=== PATIENT | female | born 1960 | race American Indian/Alaskan Native ===

== ENCOUNTER → 2023-07-24 14:20 | Outpatient (REF) | payer MEDICARE, OTHER, SELFPAY | LOC: WDC 14:20 | PROVIDERS: ATTENDING PHYSICIAN Student in an Organized Health Care Education/Training Program | DX: Z12.31 Encounter for screening mammogram for malignant neoplasm of breast (principal); M81.0 Age-related osteoporosis without current pathological fracture | CPT/HCPCS: 77063; 77067; 77080 ==

== ENCOUNTER → 2023-10-02 | Outpatient (REF) | payer MEDICARE, OTHER, SELFPAY | LOC: DHSLP | PROVIDERS: ATTENDING PHYSICIAN Student in an Organized Health Care Education/Training Program | DX: G47.33 Obstructive sleep apnea (adult) (pediatric) (principal) | CPT/HCPCS: 95800 ==

== ENCOUNTER → 2024-01-19 06:15 | Outpatient (REF) | payer MEDICARE, OTHER, SELFPAY ==
[2024-01-19 11:33] VITALS: BMI 36.9
[2024-01-19 11:57] LABS: % Basophils 0.6 % (0-2); % Eosinophils 1.9 % (0-6); % Immature Granulocytes 0.2 % (0-0.5); % Lymphocytes 35.4 % (20.5-51.1); % Monocytes 6.9 % (1.7-9.3); Absolute Eosinophils 0.1 10^3/uL (0-0.7); Absolute Lymphocytes 1.7 10^3/uL (1.2-3.4); Absolute Monocytes 0.3 10^3/uL (0.1-0.6); Absolute Neutrophils 2.6 10^3/uL (1.4-6.5); Hematocrit 33.2 % (37.0-47.0); Hemoglobin 10.1 g/dL (12.0-16.0); Mean Corp Hgb Conc. 30.4 g/dL (33.0-37.0); Mean Corpuscular Hgb 23.8 pg (27.0-31.0); Mean Corpuscular Volume 78.1 fL (81.0-99.0); Mean Platelet Volume 9.8 fL (7.4-10.4); Nucleated Red Blood Cells % 0 %; Platelet Count 205 10^3/uL (130-400); Red Blood Cell Count 4.25 10^6/uL (4.20-5.40); Red Cell Dist. Width 15.5 % (11.5-14.5); White Blood Cell Count 4.8 10^3/uL (4.8-10.8)
[2024-01-19 12:32] LABS: ALT (SGPT) 18 U/L (0-35); AST (SGOT) 24 U/L (14-36); Alkaline Phosphatase 66 U/L (38-126); Blood Urea Nitrogen 15 mg/dl (7-17); Calcium 9.2 mg/dl (8.4-10.2); Carbon Dioxide 25 mmol/L (22-30); Chloride 107 mmol/L (98-107); Estimated Creatinine Clearance 85 ml/min; Glucose 168 mg/dl (70-99); Potassium 4.6 mmol/L (3.5-5.1); Sodium 141 mmol/L (135-145); Total Bilirubin 0.8 mg/dl (0.2-1.3); Total Protein 6.8 g/dl (6.3-8.2); eGFR > 60.00
[2024-02-10 06:20] VITALS: BP 127/87
[2024-02-10 06:36] VITALS: BP 127/87
[2024-02-10 06:51] VITALS: BP 110/74
[2024-02-10 06:59] LABS: Glucose - Point of Care 133 mg/dl (70-99)
[2024-02-10 07:06] VITALS: BP 129/77
[2024-02-10] MEDS: LOPRESSOR 25 MG PO (07:44)
[2024-02-10] MEDS: NORVASC 10 MG PO (07:45)
--- NOTE | 2024-02-10 07:47 | PTCARENOTE ---
Procedure was cancelled after pt's wrist was examined by Dr Barlow. Pt appers to have a fractured right wrist. She's being taken to ED at this time for eval. Lisinopril, Metoprlol a,d Norvasc were administered before transfer for heart rate 120's.
Son notified of plan of care. All personal effects with pt.
--- NOTE | 2024-02-10 07:47 | W.PN.UPDATE ---
Update Note
Progress Note Update
Pt here for PFA today. She had a fall last night and landed on her right arm/wrist, decided not to go to ER/UC as she had procedure today. On exam, the right wrist/forearm is warm to touch, swollen and tender, bruising noted on back of hand and
posterior lateral wrist with disfiguration/marked swelling. Unable to move at wrist without significant pain. Fingers are mildly swollen and warm, denies numbness/tingling.
Discussed with Dr. Barlow. Will cancel procedure today and send patient to ER for workup. Likely a fractured wrist. CBC office will reschedule procedure.
[2024-02-10] MEDS: ZESTRIL 40 MG PO (09:45)
== END ==
LOC: REG 06:15
PROVIDERS: ATTENDING PHYSICIAN Internal Medicine Cardiovascular Disease; FAMILY PHYSICIAN Student in an Organized Health Care Education/Training Program
DX: I48.0 Paroxysmal atrial fibrillation (principal); Z53.09 Procedure and treatment not carried out because of other contraindication; I10 Essential (primary) hypertension; E03.9 Hypothyroidism, unspecified; E11.9 Type 2 diabetes mellitus without complications; Z79.01 Long term (current) use of anticoagulants; Z79.84 Long term (current) use of oral hypoglycemic drugs
CPT/HCPCS: 36415; 80053; 82962; 85025; 86850; 86900; 86901

== ENCOUNTER 2024-02-10 07:54 | Emergency (ER) | payer MEDICARE, OTHER, SELFPAY ==
[2024-02-10] VITALS (11 sets, daily range): BP systolic 90–131; BP diastolic 66–94; BMI 37.2
--- NOTE | 2024-02-10 08:24 | ED.GENMED ---
History of Present Illness
<Li Fernández MD, Resident - Last Filed: 02/10/24 09:53>
General
Chief Complaint: Musculo-Skeletal Complaint
Source: patient
Exam Limitations: none
Time Seen by Provider: 02/10/24 07:58
Nursing documentation reviewed up to this point in time: agreed with
Travel History
Have you traveled to any high risk areas for coronavirus over the past 14 days?: No
Have you had any contact with someone who has COVID-19?: No
Do you have any symptoms of coronavirus? Fever > 100 degrees, chills, cough, shortness of breath, sore throat, loss of taste or smell, muscle aches, or headache?: No
History of Present Illness
History of Present Illness:
64-year-old female with past medical history of hypertension, osteoporosis, A-fib/a flutter on anticoagulation, HLD presents to the hospital s/p mechanical fall yesterday night around 10 PM. While trying to go down on the staircase in her home she
missed a step and tripped down, fell on an outstretched hand and boar all her weight on right hand and right knee. Then she pulled herself back on the stairs and sat down. She denies hitting her head. She denies having blurring of vision,
headaches, nausea, chest pain, ribs pain, neck pain, hips pain. She had no difficulty bearing weight on her hips or knees, denies having any pain in her knee or hips. She is scheduled to undergo pulmonary vein ablation for A-fib/flutter today in
the a.m. with Dr. Barlow, hence patient decided to go ahead with the procedure and seek health care for her wrist later. Upon arrival to the ER patient continues to remain in A-fib, took her metoprolol succinate in the a.m. today and her last dose
of Eliquis was in the p.m. yesterday.
Past History
<Li Fernández MD, Resident - Last Filed: 02/10/24 09:53>
Past History
ED Past Medical History: Other (Hypertension, A-fib/a flutter, osteoporosis, diabetes, anticoagulation for A-fib.)
ED Past Surgical History: Other (Femur and left arm orthopedic surgeries.)
Social History
Tobacco: Non-smoker
Alcohol: None
Drug: None
Personal:
Living: with family
Employment: Retired
Family History
Family History: Other
Review of Systems
<Li Fernández MD, Resident - Last Filed: 02/10/24 09:53>
Review of Systems
Allergies reviewed?: Yes
Other source history: family
Constitutional: Reports no symptoms
EENT: Reports no symptoms
Respiratory: Reports no symptoms
Cardiac: Reports no symptoms
ABD/GI: Reports no symptoms
: Reports no symptoms
Musculoskeletal: Reports joint pain (Right wrist pain, right wrist swelling, right weight. Still able to wiggle the fingers.)
Skin: Reports other (Bruising and contusion over the right wrist.)
Neurological: Reports no symptoms
Endocrine: Reports no symptoms
Hematologic/Lymphatic: Reports no symptoms
Psychiatric: Reports no symptoms
Phy Exam
<Li Fernández MD, Resident - Last Filed: 02/10/24 09:53>
General Physical Exam
General Presentation: well appearing and no apparent distress
General Skin: warm
General Habitus: normal
General Mental: alert
General Hydration: appears well hydrated
ENT Exam
ENT Exam: EOMI
Eye Exam
Eye Exam: PERRL, EOMI and disc sharp
Cardiovascular Exam
Cardiovascular Exam: no edema, no gallop, no JVD, no murmur, normal peripheral pulses and irregularly irregular
Heart Sounds: normal
Pulmonary Exam
Pulmonary Exam: other (Bilateral lower lobe crackles present)
Gastrointestinal Exam
Gastrointestinal Exam: normal bowel sounds, non tender, soft and non distended
Neurological Exam
Neurological Exam: alert and oriented x3
Musculoskeletal Exam
Musculoskeletal Exam: other (Right wrist-erythematous, swollen, tender to touch, contusion on the surface of the skin noted mild displacement of the radial styloid noted)
Skin Exam
Skin Exam: erythema and other (Contusion over the right wrist noted.)
Course
<Li Fernández MD, Resident - Last Filed: 02/10/24 09:53>
Orders/Labs/Results
Orders:
Orders
02/10/24 08:02
CR Wrist - Right Min 3 Views Urgent
Comment:
Reason For Exam: fall
Knee, Right 4 or More Views [CR Knee- Right 4 Or More View*] Urgent
Comment:
Reason For Exam: fall
02/10/24 08:03
EKG [Electrocardiogram (*1)] Urgent
Reason for Study: Atrial Fibrillation
EKG- Treatment ONCE
02/10/24 08:47
Splints/Slings/Crut- Treatment ONCE
Crutches: No
Location: Right
Type of Splint: Volar
02/10/24 09:20
Complete Blood Count/With Diff Urgent
Comprehensive Metabolic Panel Urgent
02/10/24 09:27
Propofol [Diprivan] 20 ml .ROUTE .STK-MED
02/10/24 09:38
EKG [Electrocardiogram (*1)] Urgent
Reason for Study: Atrial Fibrillation
EKG- Treatment ONCE
Vital Signs
Initial and Last Documented VS:
Initial Vital Signs
Temp Pulse Resp Pulse Ox
98.0 F 109 17 97
02/10/24 07:57 02/10/24 07:57 02/10/24 07:57 02/10/24 07:57
Last Documented Vital Signs
Temp Pulse Resp BP Pulse Ox
97.8 F 61 21 106/66 98
02/10/24 09:30 02/10/24 09:45 02/10/24 09:45 02/10/24 09:45 02/10/24 09:45
<Edenilson Hardy Marilyn, DO - Last Filed: 02/10/24 09:49>
Orders/Labs/Results
Orders:
Orders
02/10/24 08:02
CR Wrist - Right Min 3 Views Urgent
Comment:
Reason For Exam: fall
Knee, Right 4 or More Views [CR Knee- Right 4 Or More View*] Urgent
Comment:
Reason For Exam: fall
02/10/24 08:03
EKG [Electrocardiogram (*1)] Urgent
Reason for Study: Atrial Fibrillation
EKG- Treatment ONCE
02/10/24 08:47
Splints/Slings/Crut- Treatment ONCE
Crutches: No
Location: Right
Type of Splint: Volar
02/10/24 09:20
Complete Blood Count/With Diff Urgent
Comprehensive Metabolic Panel Urgent
02/10/24 09:27
Propofol [Diprivan] 20 ml .ROUTE .STK-MED
02/10/24 09:38
EKG [Electrocardiogram (*1)] Urgent
Reason for Study: Atrial Fibrillation
EKG- Treatment ONCE
Vital Signs
Initial and Last Documented VS:
Initial Vital Signs
Temp Pulse Resp Pulse Ox
98.0 F 109 17 97
02/10/24 07:57 02/10/24 07:57 02/10/24 07:57 02/10/24 07:57
Last Documented Vital Signs
Temp Pulse Resp BP Pulse Ox
97.8 F 61 21 106/66 98
02/10/24 09:30 02/10/24 09:45 02/10/24 09:45 02/10/24 09:45 02/10/24 09:45
Procedures
<Li Fernández MD, Resident - Last Filed: 02/10/24 09:53>
Cardioversion
Patient has a gag reflex: Yes
<Edenilson Sanders, DO - Last Filed: 02/10/24 09:49>
Cardioversion
Indication:: Afib
Performed by:: Dr. Sanders / Dr. Fernández
Synchronized?: Yes
Energy Used: 200 joules
Number of attempts: 1
Successful?: Yes
ASA Risk Score: Class II
Any reaction or bad outcome to prior sedation/anesthesia?: No history of a reaction
Sedation level to be attained: moderate
Chart and allergies reviewed: Yes
Patient reassessed prior to sedation: Yes
Time out completed at (validating right patient & procedure): 09:34
History of difficult intubation: No
Airway free of obstruction: Yes
Patient is able to open mouth: Yes
Patient has no dentures: Yes
Patient has no loose teeth: Yes
Medication administered by Provider during Moderate Sedation: IV Propofol (mg)
Total dose administered: 80
Time drug administered: 09:34
Start Time: 09:34
Stop Time: 09:45
<Li Fernández MD, Resident - Last Filed: 02/10/24 09:53>
MDM/Problems Addressed
Differential Diagnosis Includes:
Fracture of the distal radius head. Nondisplaced fracture of the ulnar styloid-Colles' fracture
MDM/Problems Addressed:
Colles' fracture right wrist with volar splint.
<Li Fernández MD, Resident - Last Filed: 02/10/24 09:53>
*Radiology
Radiology exam reviewed: preliminary read by ED provider
*Pulse Oximetry
Patient hypoxic: no
*EKG
Interpreted by ED Provider?: Yes
EKG Intrepretation Date: 02/10/24
Interpretation: abnormal
Comparison EKG: changes noted
Heart Rate: 106
Rate: other
Rhythm: a-fib
[place]: normal axis
Interval: normal QT interval and normal OR interval
QRS Pattern: normal QRS
Ischemia: no ischemia
*Rice Drier Operator Interpretation
Rate: other
Interpretation: abnormal
Heart Rate: 110
Rhythm: a-fib
*Critical Care Note
Total Time (30-74mins, 75-104mins- exclusive of procedures): Not Applicable
<Li Fernández MD, Resident - Last Filed: 02/10/24 09:53>
Update Note
Update Note:
Radiology report revealed comminuted fracture of the distal right radius extending into the radiocarpal joint with several small fracture fragments, and accompanying nondisplaced fracture of the ulnar styloid-Colles' fracture.
Updated patient, explained the treatment plan-volar splint and follow-up with outpatient orthopedics in 2 days.
Patient continues to remain on A-fib.
Touch base with cardiology, and plan is to perform synchronized cardioversion for A-fib management.
Patient did not miss any Eliquis doses over the last several weeks. Last Eliquis dose was yesterday night.
CBC and CMP ordered before performing cardioversion.
ED Attending Note
<Li Fernández MD, Resident - Last Filed: 02/10/24 09:53>
-
Portions of this chart may have been created with voice recognition software.� Occasional wrong word or��sound alike� substitutions may have occurred due to the inherent limitations of voice recognition software.
<Edenilson Sanders DO - Last Filed: 02/10/24 09:49>
ED Attending Note
Patient seen and examined by attending physician: Yes
I performed the substantive portion of visit, reviewed & personally made and approve the management plan that is documented in note by myself or KARMA.: Yes
I performed a history and physical exam of patient and discussed management with resident, I reviewed resident's note and agree with documented findings and plan of care.: Yes
ED Attending Note:
I evaluated patient at bedside. Soft tissue swelling noted with decreased active range of motion of the right wrist. Considered attempting reduction however I do not feel that this will change alignment significantly. Dr. Barlow notified and
will plan ablation attempt next week. Heart rate is elevated and she did take her metoprolol earlier today.
Discharge Plan
Departure
Patient Disposition: Home (Routine Discharge)
Date of Disposition: 02/10/24
Time of Disposition: 10:20
Patient with high blood pressure during this ER visit?: Yes
Condition: Fair
Discharge Problem:
Colles' fracture of right radius, Atrial fibrillation status post cardioversion
Instructions: Wrist Fracture (DC), Splint Care
Prescriptions:
No Action
metformin 500 MG tablet
1,000 mg PO BID
atorvastatin 20 MG tablet
20 mg PO DAILY
glimepiride 1 MG tablet
1 mg PO DAILY
levothyroxine [Synthroid] 88 MCG tablet
88 mcg PO DAILY
amlodipine 10 MG tablet
10 mg PO DAILY
metoprolol tartrate 50 MG tablet
25 mg PO BID
lisinopril 40 MG tablet
40 mg PO DAILY
Eliquis 5 MG tablet
5 mg PO BID
multivitamin 1 EACH tablet
1 ea PO DAILY
Prolia 60 mg/mL Syringe
60 mg SC [id number]
Referrals:
Kellee Irby MD [Family Provider] -
Inderjit Flores MD [Active] - (In 2 days for Colle's fracture evaluation)
Keely Barlow MD [Active] - (On February 17.)
Activity Restrictions/Additional Instructions:
Take Tylenol Extra Strength as needed for pain. Can go up to a maximum of 3 g a day.
Follow-up with orthopedics Dr. Flores in 2 days.
Follow-up with your wooden frame builder Dr. Barlow on February 17.
Follow-up with your primary care in 2 weeks.
Interventions
Interventions:
*Risk Screen - Suicide Last Done: 02/10/24 07:57
*General Assessment Last Done: 02/10/24 07:57
*Neglect/Abuse Screening Last Done: 02/10/24 07:57
*ED COVID-19 Vaccine History Last Done: 02/10/24 07:57
ED-Musculoskeletal Assessment Last Done: 02/10/24 07:57
Discharge Date and Time
Print Language: WOLOF
[2024-02-10] MEDS: ELIQUIS 5 MG PO (10:25)
== END 2024-02-10 11:07 | disposition home or self-care (01) ==
LOC: EMR 07:54
PROVIDERS: EMERGENCY PHYSICIAN Emergency Medicine; FAMILY PHYSICIAN Student in an Organized Health Care Education/Training Program
DX: S52.531A Colles' fracture of right radius, initial encounter for closed fracture (principal); I48.91 Unspecified atrial fibrillation; W19.XXXA Unspecified fall, initial encounter; I10 Essential (primary) hypertension; M81.0 Age-related osteoporosis without current pathological fracture; E11.9 Type 2 diabetes mellitus without complications; E78.00 Pure hypercholesterolemia, unspecified
CPT/HCPCS: 99283; 29125; 92960; 73110; 73564; 93005

== ENCOUNTER 2024-02-18 06:48 | Day surgery (SDC) | payer MEDICARE, OTHER, SELFPAY ==
--- NOTE | 2024-02-12 13:40 | PTCARENOTE ---
Abnormal EKG reviewed by Dr. Gamble, no further action requested.
[2024-02-18] VITALS (18 sets, daily range): BP systolic 77–130; BP diastolic 38–90; BMI 36.7; BMI 33.8
[2024-02-18 13:15] LABS: Glucose - Point of Care 120 mg/dl (70-99)
[2024-02-18] MEDS: TYLENOL 1000 MG PO (13:18)
--- NOTE | 2024-02-18 20:06 | W.IMMPOSTOP ---
Surgical Immed Post Op Note
-
Primary Surgeon: Calvin Madera MD
Assisting Surgeon: Ann Rader PA-C
Pre-op Diagnosis: Right distal radius fracture
Post-op Diagnosis: Right distal radius fracture
Procedure Performed: Open reduction internal fixation right distal radius
Anesthesia Type: block, general
Specimen / Cultures: none
Estimated Blood Loss: 5mL
Complications: none apparent
Tourniquet time: 75 minutes
Operative Findings: dorsal comminution
Operative report dictation #: [id number]
[2024-02-18 20:09] LABS: Glucose - Point of Care 107 mg/dl (70-99)
[2024-02-18] MEDS: LR 1000 IV (22:34)
--- NOTE | 2024-02-18 22:34 | HPS.HSE ---
Family Physician
-
Family Physician: Kellee Irby MD
Chief Complaint
-
Tachycardia / Hypotension
History of Present Illness
Patient is a 64y F with PMH significant for hypertension, DM-II and A-Fib who presented to today for scheduled R distal radius ORIF. Patient had fall at home on outstretched hand on 02/08. Noted to have fracture and scheduled for surgery today.
Patient underwent surgery this afternoon. while in PACU / recoievry, she was noted to be in atrial fibrillation with rates > 100 bpm and was hypotensive with BP as low as 77/54.
Patient seen and examined in the PACU.
She feels well and denies any lightheadedness, dizziness, chest pain, palpitations, or dyspnea. No fevers / chills, N/V/D or recent complaints.
Patient states that she has a history of paroxysmal atrial fibrillation. She is followed by Dr. Barlow. She was scheduled for PVI ablation; however, she had to postpone this due to her fall / wrist fracture.
Medical History
Past Medical History
Past Medical History: Reports Other
Additional Past Medical History:
Paroxysmal Atrial Fibrillation
Hypertension
DM-II
Hypothyroidism
Osteoporosis
Obesity
Past Surgical History: Reports Other
Additional Past Surgical History:
Right Femur ORIF
Left Arm Surgery
DCCV
PVI Ablation
Social History
Tobacco: Non-smoker
Alcohol: None
Drug: None
Family History
Family History: Not pertinent
Allergies / Home Medications
Allergies reflects when Allergies were last updated in [facility].
Home Medications with original date entered in [facility]
Allergy/Medication List:
Allergies
Allergy/AdvReac Type Severity Reaction Status Date / Time
No Known Allergies Allergy Verified 02/18/24 13:02
Home Medications
amlodipine 10 mg tablet 10 mg PO DAILY 06/21/21
apixaban 5 mg tablet (Eliquis) 5 mg PO BID 06/21/21
atorvastatin 20 mg tablet 20 mg PO DAILY 06/21/21
glimepiride 1 mg tablet 1 mg PO DAILY 06/21/21
levothyroxine 88 mcg tablet (Synthroid) 88 mcg PO DAILY 06/21/21
lisinopril 40 mg tablet 40 mg PO DAILY 06/21/21
metformin 500 mg tablet 1,000 mg PO BID 06/21/21
metoprolol tartrate 50 mg tablet 25 mg PO BID 06/21/21
multivitamin 1 ea PO DAILY 10/08/21
denosumab 60 mg/mL subcutaneous syringe (Prolia) 60 mg SC [id number] 02/10/24
furosemide 40 mg tablet (Lasix) 40 mg PO DAILY PRN edema 02/17/24
Review of Systems
-
History Source: Patient
A 12 point ROS was completed and negative except as noted: Yes
Constitutional: Denies Fever, Fatigue or Chills
EENT: Denies Sore Throat
Respiratory: Denies Cough or Trouble Breathing
Cardiac: Denies Chest Pain or Palpitations
Abdomen/GI: Denies Abdominal Pain, Nausea, Vomiting or Diarrhea
: Denies Dysuria, Frequency or Flank Pain
Musculoskeletal: Reports Joint Pain; Denies Edema
Neurological: Denies Dizzy or Headache
Psych: Denies Depression or Anxiety
Physical Exam
Vital Signs
Vital Signs
Temp Pulse Resp BP Pulse Ox
97.5 F 110 16 108/77 90
02/18/24 22:28 02/18/24 22:28 02/18/24 22:28 02/18/24 22:28 02/18/24 22:28
Physical Exam
General: Other (64y F in no acute distress.)
HEENT: Moist mucous membranes and PERRLA
Respiratory: Clear; No Wheezes, Rales or Rhonchi
Cardiac: S1/S2 and Irregular Rhythm; No Murmur
GI: Soft, Non Tender, Non Distended and Normal Bowel Sounds
Musculoskeletal: No Clubbing, No Cyanosis, No Edema and Other (RUE with splint / LISA wrap in place post-op. No LE edema.)
Neuro: AO x 3
Impression/Plan
-
A/P: Patient is a 64y F with PMH significant for hypertension, DM-II and A-Fib who presented to for scheduled R wrist ORIF today and was noted to be tachycardic and hypotensive post-op.
Paroxysmal Atrial Fibrillation
Hypotension post-op
- Monitor on telemetry overnight.
- A-Fib rates are around 100 bpm for the most part.
- Will continue with usual metoprolol dosing for now and follow rates, etc.
- Asymptomatic. Follow for any clinical changes.
- IVF support for low BP - has been steadily in 90s - 100s for some time now after IVFs.
- Follow for any new symptoms / worsening BP / etc.
- Patient states that she held her Eliquis for 3 days prior to surgery. Resume tomorrow if OK with Ortho.
s/p R Distal Radius ORIF 02/18/24
- Pain well-controlled at present.
- Post-op care per Ortho.
Benign Hypertension
- Hold antihypertensive medications for now given hypotension.
- Resume one at a time once BP is improved.
DM-II
- Stable. Hold PO medications.
- Follow glucose and cover with SSI as needed.
- Update A1C.
Hypothyroidism
- Stable. Continue T4 supplementation.
DVT Prophylaxis: SCDs
Code Status: Full
--- NOTE | 2024-02-18 22:49 | PTCARENOTE ---
Addendum entered by Vickie Khan RN 02/18/24 22:52:
pt's SaO2 90% on room air, placed on 2L nasal cannula, pt SaO2 94%
Original Note:
received pt from PACU at approx 2220, pt pulled over from stretcher to bed with assist x2.
received pt with R arm in rebecca wrap and in sling, limb alert bracelet placed.
VSS, AAOx3, admission questions completed as documented.
pt oriented to room, call [facility] within reach
--- NOTE | 2024-02-18 23:19 | PTCARENOTE ---
Pt placed on telemetry monitoring - reading A-fib, HR in the 100s-110s.
BOBBI Obando notified regarding 1mg IV Lopressor dose from approx 1944, instructed not to give and monitor BP/HR.
Pt updated on plan of care
[2024-02-19] VITALS (7 sets, daily range): BP systolic 102–133; BP diastolic 64–87; PULSE 94; O2SAT 97
[2024-02-19] MEDS: DESENEX/MITRAZOL/ZEASORB TOPICAL (00:39)
[2024-02-19 06:10] LABS: Hematocrit 28.5 % (37.0-47.0); Mean Corp Hgb Conc. 31.6 g/dL (33.0-37.0); Mean Corpuscular Hgb 24.1 pg (27.0-31.0); Mean Corpuscular Volume 76.2 fL (81.0-99.0); Mean Platelet Volume 10.1 fL (7.4-10.4); Platelet Count 172 10^3/uL (130-400); Red Blood Cell Count 3.74 10^6/uL (4.20-5.40); White Blood Cell Count 5.4 10^3/uL (4.8-10.8)
[2024-02-19 06:27] LABS: Blood Urea Nitrogen 10 mg/dl (7-17); Calcium 7.3 mg/dl (8.4-10.2); Carbon Dioxide 22 mmol/L (22-30); Chloride 107 mmol/L (98-107); Estimated Creatinine Clearance 105 ml/min; Glucose 177 mg/dl (70-99); Potassium 4.4 mmol/L (3.5-5.1); Sodium 139 mmol/L (135-145); eGFR > 60.00
[2024-02-19 07:45] LABS: Glucose - Point of Care 185 mg/dl (70-99)
--- NOTE | 2024-02-19 07:55 | W.PN.ORTHO ---
Documented by User: Lev Cortez PA-C 02/19/24 08:03
Today's Communication / Plan
-
Status post open reduction internal fixation right distal radius fracture March 19, [address] Madera. She is doing well and pain is controlled. She was admitted for observation secondary to hypotension which seems to be improved. Suggest if
medically cleared today discharge to home. She may resume her Eliquis as of now. Focus on ice with elevation to control swelling and pain along with Tylenol. Follow-up in office 2 weeks for wound check and x-ray.
Assessment
.
Distal Motor Intact: Yes
Dressing:
Clean, dry and intact.
Plan
.
Surgery / Date: ORIF R radius fx 02/17 Sant[facility]
DVT Prophylaxis: Other
Activity:
Out of bed.
PT/OT
Discharge Plan: Home
Subjective
.
.:
Patient underwent open reduction internal fixation right distal radius fracture February 18, [address] Madera. She does have history of atrial fibrillation/ hypotension and was admitted for observation. This morning pain seems to be
well-controlled
Vital Signs and Labs
.
Vital Signs and Labs:
Lab Results
02/19/24 05:43
02/19/24 05:43
Temp Pulse Resp BP Pulse Ox
97.7 F 111 16 124/73 100
02/19/24 07:26 02/19/24 07:26 02/19/24 07:26 02/19/24 07:26 02/19/24 07:26
Physical Exam
-
Splint in place right upper extremity. Mild to moderate edema noted in the fingers. No pain noted. Distal neurovascular was intact.

Documented by User: Calvin Madera MD 02/19/24 08:10
Today's Communication / Plan
-
Status post open reduction internal fixation right distal radius fracture February 18, [address] Madera. She is doing well and pain is controlled. She was admitted for observation secondary to hypotension which seems to be improved. Suggest if
medically cleared today discharge to home. She may resume her Eliquis as of now. Focus on ice with elevation to control swelling and pain along with Tylenol. Follow-up in office 2 weeks for wound check and x-ray.
[2024-02-19] MEDS: SYNTHROID 88 MCG PO (08:42)
[2024-02-19] MEDS: LOPRESSOR 25 MG PO (08:42)
[2024-02-19] MEDS: LR 1000 IV (08:43)
[2024-02-19] MEDS: DESENEX/MITRAZOL/ZEASORB 1 APPLIC TOPICAL (08:44)
[2024-02-19] MEDS: NOVOLOG FLEXPEN-LOW RESISTANCE 1 UNITS SC (08:55)
--- NOTE | 2024-02-19 10:10 | W.PN.HOSP.TC ---
Today's Communication/Plan
-
dc to home/VN
Assessment / Plan
Assessment / Plan
Assessment:
Paroxysmal Atrial Fibrillation
Hypotension post-op
- Monitor on telemetry overnight.
- A-Fib rates are around 100 bpm for the most part.
- discharge on Metoprolol BID; d/w daughter/patient for a PRN dose if HR >100 sustained >1 hr at home
- s/p IVF
- Resume Eliquis at discharge per Ortho
- planned for outpatient Ablation with Dr. Barlow
s/p R Distal Radius ORIF 02/18/24
- Pain well-controlled at present.
- Post-op care per Ortho.
Benign Hypertension
- resume home BP meds at discharge
DM-II
- Stable. resume home meds
- Follow glucose and cover with SSI as needed.
- A1c pending
Hypothyroidism
- Stable. Continue T4 supplementation.
DVT Prophylaxis: SCDs
Code Status: Full
More than 30 minutes spent in discharge including
Final examination of the patient
Summarizing hospital stay
Instructions for continuing care to all relevant caregivers
Preparation of discharge records, prescriptions, and referral forms
Total time spent (in minutes): 41
Anticipated Discharge: Today
Subjective/Interval History
-
Date of Service: February 19, 2024
denies any new complaints presently
BP in 120s
HRs mostly controlled 100-120s
Objective Data
-
Labs:
Laboratory Results
02/19/24
05:43
WBC 5.4
Hgb 9.0 L
Hct 28.5 L
Plt Count 172
Sodium 139
Potassium 4.4
Chloride 107
Carbon Dioxide 22
BUN 10
Creatinine 0.5 L
Glucose 177 H
Calcium 7.3 L
Vital Signs:
Vital Signs
Temp Pulse Resp BP Pulse Ox
97.7 F 111 16 124/73 100
02/19/24 07:26 02/19/24 08:42 02/19/24 07:26 02/19/24 08:42 02/19/24 07:26
I&O
02/18/24 02/19/24 02/20/24
06:59 06:59 06:59
Intake Total 3800 / 3800
Output Total 400 / 400
Balance 3400 / 3400
Physical Exam
-
General: No Apparent Distress
HEENT: Normocephalic and Atraumatic
Respiratory: Negative Wheezes
Cardiac: Irregular Rhythm and Tachycardic (mild)
Genito-urinary: No Costovertebral Tender
Neuro: AO x 3
Hematologic / Lymphatic: No Lymphadenopathy
Psych: Calm
Data Reviewed
-
Total Time Spent with Patient (in minutes): 41
Labs: Labs Reviewed by me
[2024-02-19 10:19] LABS: Glycohemoglobin (HgbA1c) 6.8 % (4.0-5.6)
--- NOTE | 2024-02-19 10:21 | W.DS.TRANS ---
DC Summary - Academic Services Professional
-
Discharge Instructions:
Discharge Diagnosis/Procedures Open reduction internal fixation right distal
radius fracture, post-op hypotension
Diet As tolerated
Additional Activity non-weightbearing right upper extremity
Driving Restrictions No driving
Bathing Restrictions when showering bag splint
Wound Care leave splint in place
ice with elevation to above level of heart to
control swelling/pain
Instructions:
Stand-Alone Forms:
Changes to Home Medications: Yes
Discharge Medications:
DC Medications w/original date entered in [facility]
apixaban 5 mg tablet (Eliquis) 5 mg PO BID 06/21/21
atorvastatin 20 mg tablet 20 mg PO DAILY 06/21/21
glimepiride 1 mg tablet 1 mg PO DAILY 06/21/21
levothyroxine 88 mcg tablet (Synthroid) 88 mcg PO DAILY 06/21/21
metformin 500 mg tablet 1,000 mg PO BID 06/21/21
metoprolol tartrate 50 mg tablet 25 mg PO BID 06/21/21
multivitamin 1 ea PO DAILY 10/08/21
denosumab 60 mg/mL subcutaneous syringe (Prolia) 60 mg SC [id number] 02/10/24
furosemide 40 mg tablet (Lasix) 40 mg PO DAILY PRN edema 02/17/24
acetaminophen 500 mg capsule 1,000 mg (2 x 500 mg) PO Q6H PRN Pain #60 caps 02/19/24
lisinopril 20 mg tablet 20 mg PO DAILY #30 tabs 02/19/24
Home Medication Changes
amlodipine stopped
reduced Lisinopril to 20mg from 40mg
resume Eliquis
Pending Results: No
Total time spent discharging patient (in min): 41
--- NOTE | 2024-02-19 11:00 | PTOTSP ---
The patient was able to ambulate and perform stairs, offering no concerns regarding mobility upon return home (patient was managing without use of her right hand since the injury prior to surgery). Patient anticipates having family assistance as
needed. No PT needs identified at this time, will sign off.
--- NOTE | 2024-02-19 11:28 | CM ---
Alert awake oriented patient who lives with her dgt Etal who lives in a [address] with 2 steps to enter and 10 steps to bed/bathroom.She is independent in driving and in all activities of daily living.Offered VN she declined.Dgt will drive her
home.
No adaptive devices
Never had VN/SNF
Pharmacy [facility]
PCP Dr Owusu
PLAN Home no needs
== END 2024-02-19 13:47 | disposition home or self-care (01) ==
LOC: SDS 06:48
PROVIDERS: Hospitalist; ATTENDING PHYSICIAN Internal Medicine; CONSULT PHYSICIAN Student in an Organized Health Care Education/Training Program; FAMILY PHYSICIAN Student in an Organized Health Care Education/Training Program
DX: S52.501A Unspecified fracture of the lower end of right radius, initial encounter for closed fracture (principal); W18.30XA Fall on same level, unspecified, initial encounter; Y92.009 Unspecified place in unspecified non-institutional (private) residence as the place of occurrence of the external cause
CPT/HCPCS: 25607; 73100; 76000; 80048; 82962; 83036; 85027; 97161; 97166; C1713

== ENCOUNTER 2024-03-16 10:46 | Day surgery (SDC) | payer MEDICARE, OTHER, SELFPAY ==
[2024-03-05 11:33] VITALS: BMI 38.1
[2024-03-05 11:55] LABS: % Basophils 0.6 % (0-2); % Eosinophils 1.1 % (0-6); % Immature Granulocytes 0.2 % (0-0.5); % Lymphocytes 30.1 % (20.5-51.1); % Monocytes 5.5 % (1.7-9.3); % Neutrophils 62.5 % (42.2-75.2); Absolute Eosinophils 0.1 10^3/uL (0-0.7); Absolute Lymphocytes 1.6 10^3/uL (1.2-3.4); Absolute Monocytes 0.3 10^3/uL (0.1-0.6); Absolute Neutrophils 3.4 10^3/uL (1.4-6.5); Hematocrit 33.4 % (37.0-47.0); Hemoglobin 9.8 g/dL (12.0-16.0); Mean Corp Hgb Conc. 29.3 g/dL (33.0-37.0); Mean Corpuscular Hgb 24.1 pg (27.0-31.0); Mean Corpuscular Volume 82.1 fL (81.0-99.0); Mean Platelet Volume 10.2 fL (7.4-10.4); Nucleated Red Blood Cells % 0 %; Platelet Count 219 10^3/uL (130-400); Red Blood Cell Count 4.07 10^6/uL (4.20-5.40); Red Cell Dist. Width 16.6 % (11.5-14.5); White Blood Cell Count 5.4 10^3/uL (4.8-10.8)
[2024-03-05 12:56] LABS: ALT (SGPT) 16 U/L (0-35); AST (SGOT) 20 U/L (14-36); Albumin 3.7 g/dl (3.5-5.0); Alkaline Phosphatase 86 U/L (38-126); Blood Urea Nitrogen 15 mg/dl (7-17); Calcium 8.5 mg/dl (8.4-10.2); Carbon Dioxide 26 mmol/L (22-30); Chloride 103 mmol/L (98-107); Estimated Creatinine Clearance 82 ml/min; Glucose 164 mg/dl (70-99); Iron 36 ug/dl (37-170); Potassium 4.2 mmol/L (3.5-5.1); Sodium 141 mmol/L (135-145); Total Bilirubin 0.8 mg/dl (0.2-1.3); Total Protein 6.5 g/dl (6.3-8.2); eGFR > 60.00
[2024-03-05 13:05] LABS: Percent Saturation 8 % (20-50); Total Iron Binding Capacity 407 ug/dl (265-497)
[2024-03-05 15:58] LABS: Ferritin 7.9 ng/ml (11.1-264.0)
--- NOTE | 2024-03-08 13:58 | W.PN.UPDATE ---
Update Note
Progress Note Update
Anemia.� Additional labs added indicating an iron deficiency�
anemia.� This was present prior to fracture and ORIF.� IV iron infusion�
set up for patient and advised her GI eval.� PCP aware.
�
[2024-03-16] VITALS (23 sets, daily range): BP systolic 77–158; BP diastolic 33–92; BMI 38.1
[2024-03-16 11:47] LABS: Glucose - Point of Care 127 mg/dl (70-99)
[2024-03-16 14:59] LABS: ACT-LR - POC 390 Seconds (116-155)
[2024-03-16 15:38] LABS: ACT-LR - POC 356 Seconds (116-155)
[2024-03-16 15:54] LABS: ACT-LR - POC > 397 Seconds (116-155)
--- NOTE | 2024-03-16 16:07 | ITS.CL.ABL ---
Epic Trainer - Ablation
Ablation
Procedure Report:
AFIB ablation:
Ms. Lambert is a very pleasant 64 yr old woman with symptomatic persistent AF s/p AF ablation 10/19/2021 with PVI (Radiofrequency) had recurrent atrial fibrillation and failed Tikosyn due to long QT is recommended a redo AF ablation.
Date of the Procedure:
03/16/2024
Indications:
Persistent with recurrent atrial fibrillation
Pre-Operative Diagnosis:
Persistent with recurrent atrial fibrillation
Post-Operative Diagnosis:
Persistent with recurrent atrial fibrillation
Procedure Performed:
Atrial fibrillation ablation with Pulsed-Field approach for pulmonary vein isolation
Posterior wall isolation
Performing Physician:
Keely Barlow MD
Assistants:
EP staff
Anesthesia:
See anesthesia records
Detailed Description of the Procedure:
Written informed consent was obtained from the patient after a full explanation of the risks and benefits of the procedure including the risks of sedation and anesthesia.
The patient was brought to the electrophysiology laboratory in stable condition in fasting state. Continuous electrocardiographic and hemodynamic monitoring was initiated.
The initial rhythm was atrial fibrillation.
The procedure site was meticulously prepared with surgical scrub and allowed to dry with no pooling. Sterile draping was applied to cover the procedure site. The image intensifier was draped with sterile bag and positioned over the patient. After
infusion of local anesthetic, vascular access was obtained under ultrasound guidance and sheaths were placed over guide wire as detailed below.
Sheath and Catheter Placement:
The following catheters / sheaths were placed
Sheaths:
��������� 17Fr steerable sheath ([employer]adrive�, [employer]) in right femoral
��������� 9Fr in right femoral vein
��������� 7Fr in right femoral vein
Catheters:
��������� ALTON HD Grid mapping catheter � at locations of RA, LA
��������� Farawave� PFA catheter
��������� ICE catheter -AcuNav - at locations of RA, SVC, and RV.
��������� Decapolar Bard catheter in RA and CS
Intracardiac ECHO:
An 8-Vincentian AcuNav intracardiac ECHO (ICE) probe was advanced through the 9-Vincentian sheath in the right femoral vein into the right atrium under fluoroscopic and ICE ultrasound image guidance and a baseline ECHO study was performed. The left atrial
size was dilated. There was moderate tricuspid regurgitation. The aortic valve was grossly normal. There was reduced left ventricular systolic functions. There is moderate pericardial effusion. All the four veins were identified and has flow
identified.
During the procedure, ICE was used for monitoring of complications, guidance of trans-septal puncture, monitor the catheter position and tracking ablation lesions. No change in the pericardial space noted throughout the procedure.
Trans-septal Puncture:
Heparin was initiated and infused to maintain appropriate ACT. A J-tipped guidewire was advanced through the 8-Vincentian sheath in the right femoral vein into the superior vena cava under fluoroscopic and ICE guidance. The 9-Vincentian sheath was exchanged
for a Faradrive sheath which was advanced into the superior vena cava. A transseptal RF pigtail via Faradrive connect system was utilized to perform the trans-septal puncture. The apparatus was withdrawn until it was in contact with the fossa
ovalis. The position was adjusted based on fluoroscopy and ultrasound images from ICE. Under fluoroscopic, hemodynamic and ICE ultrasound guidance, left atrium was cannulated by applying RF energy. Once atrial septum was cannulated, the pigtail wire
was advanced through the needle into the left atrium. The guide wire was advanced into the left superior pulmonary vein. Both the sheath and the dilator was advanced into the left atrium. The dilator with the needle was withdrawn. Blood was
aspirated from the Faradrive sheath and arterial blood confirmed. The sheath was flushed. Saline injection noted into the left atrium on ICE. The mapping catheter was advanced in the sheath into the left pulmonary vein. Left atrial pressure was
measured.
3D Electroanatomic Mapping:
Using the HD Grid catheter advanced through sheath into the left atrium, an electroanatomic map (EAM) of the left atrium was created using iodine ALTON mapping system. The map was used for localization of catheter position and tacking of ablation
lesions.
The EAM of the left atrium showed 4 pulmonary veins with all 2 left sided veins electrically isolated from the body the LA and the right sided veins are reconnected to the LA. It showed extensive low voltage in the LA and it was severely dilated.
Once in sinus rhythm post ablation, the LA was much smaller, though still dilated, and had only scattered scar in the LA.
The LA was dilated in size.
Following the EAM, preparation were made for ablation.
Ablation:
Ablation # 1: Pulmonary vein Isolation:
Glycopyrrolate 0.2 mg was given prior to the placement of ablation. Using [employer] pulsed wave ablation system, pulmonary vein isolation was achieved. First the Theresa drive ablation catheter was placed in the LSPV and ostial ablation lesions were
performed in �Franklin formation� in the PV ostium circumferentially. Then the catheter was placed on the antral location in �flower formation� and lesions were placed circumferentially on the antrum of the vein.
In the similar fashion, the LSPV were isolated.
Then the catheter was moved to right sided veins. The ostial and antral ablations were placed as noted above to the RSPV and RIPV.
Ablation # 2: Posterior wall isolation:
Using the pulsed field ablation catheter, the catheter was placed on the posterior wall and moved around the posterior wall to have adequate contact and ablations were placed isolating the posterior wall.
Cardioversion:
Once the PV isolation was achieved, decision was made to proceed with cardioversion. A 200 J biphasic shock was applied on the nikia posterior Zoll patches and sinus rhythm was achieved. No significant pause noted.
Electroanatomic mapping of LA
Once the sinus rhythm achieved, the LA was mapped with HD grid in detail. There were areas of the LSPV and RSPV antrum that were still connected and decision was made to apply further ablations.
Post ablation Electroanatomic mapping:
Once ablation was completed, the EAM of the LA was done again in sinus rhythm with excellent demarcation of LA myocardium and isolated antral tissue.
The JASVIR had healthy signals and was not isolated.
EPS and Confirmation of the PVI and bidirectional block:
Following achievement of entrance block at the pulmonary veins, pacing from the HD catheter in each of the four veins at 10 milliamps for 2 milliseconds showed entrance and exit block. All PVI were rechecked at the end of the case and remained
isolated with dissociated and local capture with pacing. Entrance and exit block were demonstrated in all veins.
Procedure End
ICE study was done again that showed no change in epicardial accumulation. No complications noted.
Following the completion of the EP study, catheters were removed. Protamine 40 mg was given at the end of the procedure and ACT was checked repeatedly. The sheaths were removed and hemostasis achieved with manual compression after acceptable ACT is
achieved.
Left atrial Pressure:
Pre-Procedure: Mean LA pressure was 15mmHg (AF)
Post-Procedure: Mean LA pressure was 12mmHg (sinus)
Post-Procedure: Mean LR pressure was 7mmHg
Fluoro time:
4.7 min / DAP 2.2
Estimated Blood loss:
<10 cc
Specimens Removed:
None.
Implants / Devices:
None
Urine output:
None
Packs / Drains/ Tubes:
None
Instrument / Sponge Count Correct:
Yes
Complications of the Procedure:
None
Condition of Patient at Time of Transfer:
Hemodynamically stable with no neurological or vascular compromise.
Summary:
Successful atrial fibrillation ablation with Pulsed Field approach for pulmonary vein isolation and posterior wall isolation
Figures from the Procedure:
Figure 1: The electroanatomic mapping (EAM) of the left atrium with bipolar voltage (purple indicates normal electrical activity with natarajan as no myocardial muscle electric activity indicating a line of block or scar.
[2024-03-16 17:00] LABS: Glucose - Point of Care 131 mg/dl (70-99)
--- NOTE | 2024-03-16 18:14 | PTCARENOTE ---
Pt admit to IVU from lab courier around 1742. Pt belongings w/ pt. HR SR w/ frequent PVCs. R groin dressing CDI. Site soft, no hematoma. R DP pulse palpable. Pt denies any CP, SOB, or lightheadedness/dizziness. Call [facility] within reach.
[2024-03-16] MEDS: LIPITOR 20 MG PO (18:18)
[2024-03-16] MEDS: LOPRESSOR 25 MG PO (20:07)
[2024-03-16] MEDS: PACERONE 200 MG PO (20:08)
[2024-03-16 21:27] LABS: Glucose - Point of Care 201 mg/dl (70-99)
[2024-03-16] MEDS: ELIQUIS 5 MG PO (22:59)
--- NOTE | 2024-03-16 23:47 | PTCARENOTE ---
Received patient at change of shift. SR with PVCs on the monitor, HR in the 70s. VSS. R groin suture clipped as per protocol, see documentation. R groin dressing CDI. Activity restrictions reinforced, pt verbalizes understanding. No complaints from
pt at this time, call [facility] within reach.
[2024-03-17 03:45] VITALS: BP 105/62
[2024-03-17 04:38] LABS: Hematocrit 28.4 % (37.0-47.0); Hemoglobin 8.5 g/dL (12.0-16.0); Mean Corp Hgb Conc. 29.9 g/dL (33.0-37.0); Mean Corpuscular Hgb 23.5 pg (27.0-31.0); Mean Corpuscular Volume 78.7 fL (81.0-99.0); Mean Platelet Volume 10.2 fL (7.4-10.4); Platelet Count 149 10^3/uL (130-400); Red Blood Cell Count 3.61 10^6/uL (4.20-5.40); Red Cell Dist. Width 16.7 % (11.5-14.5); White Blood Cell Count 5.9 10^3/uL (4.8-10.8)
[2024-03-17 05:01] LABS: Blood Urea Nitrogen 16 mg/dl (7-17); Calcium 8.3 mg/dl (8.4-10.2); Carbon Dioxide 25 mmol/L (22-30); Chloride 107 mmol/L (98-107); Estimated Creatinine Clearance 82 ml/min; Glucose 116 mg/dl (70-99); Magnesium 1.9 mg/dl (1.6-2.3); Sodium 143 mmol/L (135-145); eGFR > 60.00
--- NOTE | 2024-03-17 05:28 | PTCARENOTE ---
Patient converted to Afib. HR in the 70s. EKG obtained. VSS.
[2024-03-17] MEDS: SYNTHROID 88 MCG PO (06:23)
[2024-03-17 07:35] VITALS: BP 107/67
[2024-03-17 07:39] LABS: Glucose - Point of Care 131 mg/dl (70-99)
--- NOTE | 2024-03-17 07:55 | W.PN.CD ---
Today's Communication / Plan
-
- Discharge home
- Metformin off for a week
- Amiodarone started.
- Follow up in 2 weeks.
Impression / Plan
-
64 yrs old woman with symptomatic persistent AF s/p AF ablation 10/19/2021 with PVI (Radiofrequency) had recurrent atrial fibrillation and failed Tikosyn due to long QT s/p PVI, PWI with pulsed field on 03/16/24
Persistent AF
- Severely dilated LA with significant spontaneous contrast in the JASVIR in AF
- Once sinus the LA appears contractile and JASVIR contractility improved significantly.
- PVI and PWI done.
- Will start Amiodarone 200 mg BID for couple of weeks then 200 mg QD for 6 months.
- Continue Eliquis
- Hold Metformin for next one week. 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
- Discharge home today.
Physical Exam
Vital Signs/Labs
Vital Signs
Temp Pulse Resp BP Pulse Ox
98.4 F 68 18 105/62 96
03/17/24 07:40 03/17/24 05:15 03/17/24 07:40 03/17/24 03:45 03/17/24 07:40
03/17/24 04:02
03/17/24 04:02
Magnesium 1.9 mg/dl (1.6-2.3) 03/17/24 04:02
Physical Exam
Constitutional: No acute distress and Comfortable
EENT: Anicteric and Moist mucous membranes
Cardiovascular: Rhythm & rate is regular, Pedal edema is absent and JVD pressure is normal
Respiratory: Respiratory effort normal, Lungs clear to auscul. and Wheeze Absent
GI: Soft, Distention absent and Non tender
Neuro/Psych: Alert, Oriented and AO x 3
Other: Cath Site
Data Reviewed
-
Date of Service: March 17, 2024
Medical Decision Making: Reviewed Test Results
EKG: Tracing Personally Visualized and interpreted
Labs: Labs Reviewed by me
Old Records: Reviewed
[2024-03-17] MEDS: PACERONE 200 MG PO (09:48)
[2024-03-17] MEDS: ZESTRIL 10 MG PO (09:48)
[2024-03-17] MEDS: LOPRESSOR 25 MG PO (09:48)
[2024-03-17] MEDS: ELIQUIS 5 MG PO (09:48)
--- NOTE | 2024-03-17 09:48 | W.DS.TRANS ---
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
-
Discharge Instructions:
Discharge Diagnosis/Procedures Atrial fibrillation, post ablation
Diet Low Cholesterol,Diabetic, Carb Controlled
Driving Restrictions No driving for 24 hours
Blood Work CBC in 1 week- results to Dr. Barlow
Instructions:
Stand-Alone Forms: DC Instructions- Cath/EP Lab
Changes to Home Medications: Yes
Discharge Medications:
DC Medications w/original date entered in [employer]
apixaban 5 mg tablet (Eliquis) 5 mg PO BID Blood Clot Prevention/Tx 06/21/21
atorvastatin 20 mg tablet 20 mg PO QPM High Cholesterol 06/21/21
levothyroxine 88 mcg tablet (Synthroid) 88 mcg PO DAILY Thyroid 06/21/21
metformin 500 mg tablet 1,000 mg PO BID Diabetes 06/21/21
metoprolol tartrate 50 mg tablet 25 mg PO BID Blood Pressure 06/21/21
multivitamin 1 ea PO QPM Supplement 10/08/21
denosumab 60 mg/mL subcutaneous syringe (Prolia) 60 mg SC [id number] bone health 02/10/24
lisinopril 20 mg tablet 10 mg PO DAILY 03/03/24
amiodarone 200 mg tablet 200 mg PO BID #60 tabs 03/17/24
Home Medication Changes
NEW: amiodarone
STOP: amlodipine
Pending Results: No
[2024-03-17] MEDS: PREVNAR 20 0.5 ML IM (10:01)
[2024-03-17 10:42] VITALS: BP 128/73
[2024-03-17 10:43] VITALS: BP 128/73
--- NOTE | 2024-03-17 11:24 | PTCARENOTE ---
Discussed D/C instructions w/pt, reiterated order for Metformin to be on hold for 1 week post PVI & pt verbalized her understanding. IV line & donation specialist D/C'd. Pt left w/personal belongings incl cell phone. Pt taken out via wheelchair with
daughter driving her home.
--- NOTE | 2024-03-17 15:31 | CM ---
Pt. DC to home today without needs.
Pt. resides w/ dtr. in a private, 2 story condo. There are 2 ARYAN.
Functionally, patient is indep. at baseline.
PLAN: HOME, no needs.
== END 2024-03-17 11:36 | disposition home or self-care (01) ==
LOC: CATH 10:46
PROVIDERS: Nurse Practitioner Adult Health; ATTENDING PHYSICIAN Internal Medicine Cardiovascular Disease; FAMILY PHYSICIAN Student in an Organized Health Care Education/Training Program
DX: I48.19 Other persistent atrial fibrillation (principal); I11.9 Hypertensive heart disease without heart failure; E78.5 Hyperlipidemia, unspecified; E11.9 Type 2 diabetes mellitus without complications; E03.9 Hypothyroidism, unspecified; G47.33 Obstructive sleep apnea (adult) (pediatric); D50.9 Iron deficiency anemia, unspecified; Z87.81 Personal history of (healed) traumatic fracture; Z79.01 Long term (current) use of anticoagulants; I45.81 Long QT syndrome; Z86.79 Personal history of other diseases of the circulatory system; E66.9 Obesity, unspecified; Z68.38 Body mass index [BMI] 38.0-38.9, adult; Z79.899 Other long term (current) drug therapy; Z79.890 Hormone replacement therapy; M81.0 Age-related osteoporosis without current pathological fracture; G47.00 Insomnia, unspecified; Z98.890 Other specified postprocedural states
CPT/HCPCS: C1732; C1730; C1894; C1759; C1892; 36415; 80048; 80053; 82728; 82962; 83540; 83550; 83735; 85025; 85027; 85347; 86850; 86900; 86901; 90677; 93005; 93656; 93657; C1733; C1766; G0009

== ENCOUNTER 2024-04-09 13:04 | Outpatient (RCR) | payer MEDICARE, OTHER, SELFPAY ==
[2024-03-26 11:46] VITALS: BP 149/82
[2024-03-26] MEDS: VENOFER 110 MG IV (11:58)
[2024-03-26 13:25] VITALS: BP 184/94
[2024-04-02] MEDS: VENOFER 110 MG IV (11:04)
[2024-04-02 11:19] VITALS: BP 162/74
[2024-04-02 12:20] VITALS: BP 142/74
[2024-04-09 13:15] VITALS: BP 136/71
[2024-04-09] MEDS: VENOFER 110 MG IV (13:25)
[2024-04-09 14:45] VITALS: BP 134/70
== END 2024-04-13 23:59 | disposition home or self-care (01) ==
LOC: OID 13:04
PROVIDERS: ATTENDING PHYSICIAN Physician Assistant Medical; FAMILY PHYSICIAN Student in an Organized Health Care Education/Training Program
DX: D50.9 Iron deficiency anemia, unspecified (principal); I48.0 Paroxysmal atrial fibrillation; Z79.01 Long term (current) use of anticoagulants
CPT/HCPCS: 96365; J1756

== ENCOUNTER 2024-04-13 06:22 | Day surgery (SDC) | payer MEDICARE, OTHER, SELFPAY ==
[2024-04-13 08:24] LABS: Glucose - Point of Care 151 mg/dl (70-99)
== END 2024-04-13 10:29 | disposition home or self-care (01) ==
LOC: GI 06:22
PROVIDERS: ATTENDING PHYSICIAN Internal Medicine Gastroenterology
DX: D50.0 Iron deficiency anemia secondary to blood loss (chronic) (principal); K55.20 Angiodysplasia of colon without hemorrhage; K64.8 Other hemorrhoids; K63.5 Polyp of colon; K44.9 Diaphragmatic hernia without obstruction or gangrene; K29.60 Other gastritis without bleeding
CPT/HCPCS: 45380; 45382; 43239; 88305; 82962; 88342

== ENCOUNTER → 2024-11-17 14:58 | Outpatient (REF) | payer MEDICARE, OTHER, SELFPAY | LOC: WDC 14:58 | PROVIDERS: ATTENDING PHYSICIAN Student in an Organized Health Care Education/Training Program | DX: Z12.31 Encounter for screening mammogram for malignant neoplasm of breast (principal) | CPT/HCPCS: 77063; 77067 ==